=== PATIENT | female | born 1975 | race Two or more races ===

== ENCOUNTER 2024-06-01 00:34 | Emergency (ER) | payer OTHER, SELFPAY ==
[2024-06-01 00:36] VITALS: BMI 27.9
[2024-06-01 02:02] VITALS: BP 163/98; PULSE 77; RESP 18; TEMP 36.3; O2SAT 95
[2024-06-01] MEDS: CYCLObenzaPRINE 5 MG TABLET PO (02:46)
[2024-06-01] MEDS: KETOROLAC INJ 60 MG/2 ML VIAL 30 MG IM (02:46)
--- NOTE | 2024-06-01 03:59 | PD.EDBACK ---
ED Back Injury Pain RME/HPI General Chief Complaint: Back Pain/Injury Stated Complaint: BACK PAIN Time Seen by Provider: 06/01/24 02:17 Arrival date/time: 06/01/24 00:34 48F with history of HTN presents to ED with low back pain after she got hit by a door at work. Patient denies fall, paresthesia, bowel/bladder incontinence, and N/V. Limitations: no limitations Related Data Home Medications ?Medication ?Instructions ?Recorded ?Confirmed lisinopril 40 mg tablet 40 mg PO QDAY 05/30/18 11/28/23 Allergies Allergy/AdvReac Type Severity Reaction Status Date / Time No Known Allergies Allergy Verified 11/28/23 07:27 Review of Systems Review of Systems Systems Reviewed: All systems reviewed, normal except as documented Constitutional Constitutional: Reports system reviewed and no additional complaints, except as documented, Denies fever(s) and Denies headache(s) ENT Ears, Nose, Mouth, and Throat: Denies disequilibrium and Denies headache(s) Cardiovascular Cardiovascular: Reports system reviewed and no additional complaints, except as documented, Denies chest pain and Denies dyspnea Respiratory Respiratory: Reports system reviewed and no additional complaints, except as documented, Denies cough and Denies dyspnea Gastrointestinal Gastrointestinal: Reports system reviewed and no additional complaints, except as documented, Denies abdominal pain, Denies nausea and Denies vomiting Musculoskeletal Musculoskeletal: Reports as per HPI and Reports back pain Neurologic Neurologic: Reports system reviewed and no additional complaints, except as documented, Denies confusion, Denies disequilibrium and Denies headache(s) Psychiatric Psychiatric: Denies confusion Past Medical History Past Medical History NEUROLOGIC: Negative Neurological Disorders or Seizures CARDIAC: Positive Cardiac Disorders and Hypertension; Negative Congestive Heart Failure RESPIRATORY: Negative Chronic Obstructive Pulmonary Disease (COPD) GASTROINTESTINAL: Negative Gastrointestinal Disorders GENITOURINARY: Negative Genitourinary Disorders or Renal Disease MUSCULOSKELETAL: Negative Musculoskeletal Disorders ENDOCRINE: Negative Endocrine Disorders, Diabetes Mellitus Type 1 or Diabetes Mellitus Type 2 HEMATOLOGIC: Negative Blood Disorders OTHER HISTORY: Negative Autoimmune Disease, Blood Transfusions, Anesthesia Reactions or Cancer Family History FAMILY HISTORY: Negative Family Neurologic Problems, Family Psychiatric Problems, Family Respiratory Disorders, Family Cardiac Disorders, Family Gastrointestinal Problems, Family Cancer, Family Surgery or Family Anesthesia Reaction Social History SMOKING STATUS: Never smoker SUBSTANCE USE: does not use ED Exam General Limitations: Present no limitations General appearance: Present alert and in no apparent distress Head Head exam: Present atraumatic Eye Eye exam: Present normal appearance, PERRL and EOMI ENT ENT exam: Present normal exam, normal oropharynx and mucous membranes moist Neck Neck exam: Present normal inspection, full ROM and trachea midline Chest Chest inspection: Present normal inspection and symmetric chest wall rise Respiratory Respiratory exam: Present normal lung sounds bilaterally Cardiovascular Cardiovascular exam: Present regular rate, normal rhythm and normal heart sounds Abdominal Exam Abdominal exam: Present soft and normal bowel sounds Extremities Exam Extremities exam: Present normal inspection and full ROM Back Exam Back exam: Present normal inspection and full ROM Neurological Exam Neurological exam: Present alert, oriented X3 and CN II-XII intact Psychiatric Psychiatric exam: Present normal affect and normal mood Skin Skin exam: Present warm, dry, intact and normal color Course Quality Measures none Orders Category Date Time Status CYCLObenzaPRINE [Flexeril] Med 06/01/24 02:18 Discontinued 5 mg PO X1 ONE Ketorolac Inj [Toradol Inj] Med 06/01/24 02:18 Discontinued 30 mg IM X1 ONE Vital Signs Vital signs: Vital Signs Temperature 97.4 F 06/01/24 02:02 Pulse Rate 77 06/01/24 02:02 Respiratory Rate 18 06/01/24 02:02 Blood Pressure 163/98 H 06/01/24 02:02 Pulse Oximetry (%) 95 06/01/24 02:02 Oxygen Delivery Method Room Air 06/01/24 02:02 O2 at 95% on RA and WNLs Back Pain / Injury MDM Narrative MDM Narrative:: 48F with history of HTN presents to ED with low back pain after she got hit by a door at work. Patient denies fall, paresthesia, bowel/bladder incontinence, and N/V. Physical exam reveals no midline back tenderness. ROM intact, though painful. Gait normal. Patient is afebrile, calm, and alert. Likely contusion. Meds and insurance counsel given. Patient data External records reviewed:: None Clinical information provided by:: patient Social determinants that could affect healthcare access:: none Patient has the following chronic illnesses:: HTN How is presenting disease/condition affected by chronic disease/condition?: exacerbated by Evaluation data The following diagnostics were reviewed and interpreted by me:: other (specify) (none) Lab and/or radiology exams considered but not ordered:: not ordered Interpretation Summary: n/a Medications / Prescriptions Medications or Prescriptions considered but not ordered:: ordered Medication administrations:: Medication Administration History Discontinued Medications Cyclobenzaprine HCl (Cyclobenzaprine 5 Mg Tablet) 5 mg PO X1 ONE Stop: 06/01/24 02:19 Last Admin: 06/01/24 02:46 Dose: 5 mg Documented By: CAIN Ketorolac Tromethamine (Ketorolac Inj 60 Mg/2 Ml Vial) 30 mg IM X1 ONE Stop: 06/01/24 02:19 Last Admin: 06/01/24 02:46 Dose: 30 mg Documented By: CAIN above Consultations Consultation(s) initiated? (list below): No Diagnosis Differential diagnosis back pain/injury: lumbar radiculopathy, sciatica, strain of lumbar region, renal colic, pyelonephritis, thoracic back pain, AAA, discitis and other (lumbar contusion) Most likely diagnosis given after review of the tests above:: lumbar contusion Admission Indicated Admission indicated?: not indicated Admission Request Was there a request for admission?: No Disposition Plan Disposition Plan: Discharge Discharge Attestation Discharge Attestation: The patient and all family members were given an opportunity to ask questions and understood the discharge instructions. Discharge instructions specifically effects, indications for sooner follow up or return to the emergency department, and the expected course of current diagnosis. Patient condition: Stable Discharge Plan Plan Patient Disposition: HOME (Self Care) Disposition Comment: Stable Prescriptions/Referrals Prescriptions/Med Rec: No Action lisinopril 40 mg Tablet 40 mg PO QDAY Referrals: Marisela Gonzalez MD [Primary Care Provider] - In 1 week Problem List Clinical Impression: Lumbar contusion Patient/Caregiver Discharge Instructions Education Materials: ED Back Contusion Additional Instructions: Please follow-up with PCP within 24-48 hours and return immediately if symptoms worsen. If problem persists, recommend outpatient PT and/or MRI follow-up. In the meantime, rest, use ice/heat, and/or compression. Print Language: Danish Stand Alone Forms: Patient Portal Info Letter SUKHWINDER/TIMMY Supervising Physician ALEXANDER Supervising Physician: Dr. Friedman
== END 2024-06-01 04:27 | disposition home or self-care (01) ==
PROVIDERS: Emergency Provider Emergency Medicine; PCP Obstetrics & Gynecology
DX: S30.0XXA Contusion of lower back and pelvis, initial encounter (principal); I10 Essential (primary) hypertension; W22.09XA Striking against other stationary object, initial encounter; Y93.89 Activity, other specified; Y92.59 Other trade areas as the place of occurrence of the external cause; Y99.0 Civilian activity done for income or pay
CPT/HCPCS: 96372; 99283; J1885; A9270